=== PATIENT | male | born 1965 | race Caucasian/White ===

== ENCOUNTER 2020-09-27 21:27 | Emergency (ER) | payer SELFPAY ==
[~2020-09-27] VITALS: Ht 172.7 cm; Wt 86.4 kg
[2020-09-27 21:33] VITALS: BP 129/80
== END 2020-09-27 22:52 | disposition left against medical advice (07) ==
LOC: ER 21:27
DX: T15.11XA Foreign body in conjunctival sac, right eye, initial encounter (principal); Z53.21 Procedure and treatment not carried out due to patient leaving prior to being seen by health care provider; X58.XXXA Exposure to other specified factors, initial encounter; Y93.89 Activity, other specified; Y92.89 Other specified places as the place of occurrence of the external cause; Y99.8 Other external cause status